=== PATIENT | female | born 1930 | race Caucasian/White ===

== ENCOUNTER 2018-02-28 23:39 | Inpatient (IN) | payer OTHER ==
[~2018-02-28] VITALS: Ht 160 cm; Wt 78.6 kg
[2018-03-01] MEDS ORDERED: TRIAMTERENE-HC1 EAC1 PO (00:13)
[2018-03-01] MEDS ORDERED: VALSARTAN-HCTZ1 EACH PO (00:13)
[2018-03-01] MEDS ORDERED: DONEPEZIL HCL10 M1 PO (00:14)
[2018-03-01] MEDS ORDERED: LORAZEPAM0.5 M1 PO (00:14)
[2018-03-01] MEDS ORDERED: PANTOPRAZOLE SO40 M1 PO (00:14)
[2018-03-01] MEDS ORDERED: ESCITALOPRAM OX10 MG PO (00:14)
[2018-03-01] MEDS ORDERED: ALEVE220 M1 (00:15)
[2018-03-01] MEDS ORDERED: ZYRTEC10 M3 PO (00:16)
[2018-03-01] MEDS ORDERED: COLACE100 M1 (00:16)
[2018-03-01] MEDS ORDERED: ACIDOPHILUS1 EACH PO (00:17)
--- NOTE | 2018-03-01 00:23 | ED DYSPNEA/ASTHMA COMPLAINT ---
History of Present Illness General Chief Complaint: Dyspnea (COPD, CHF, Other) Stated Complaint: BIBA DIFF BREATHING Source: patient, family Exam Limitations: no limitations Vital Signs & Intake/Output Vital Signs & Intake/Output Vital Signs Date Time Temp Pulse Resp B/P B/P Pulse O2 O2 Flow FiO2 Mean Ox Delivery Rate 03/01 0007 98 Nasal 4.0L Cannula 02/28 2344 96.8 86 20 152/98 96 Aerosol 8L Mask ED Intake and Output 03/01 0000 02/28 1200 Intake Total Output Total Balance Patient 140 lb Weight Weight Reported by Patient Measurement Method Allergies Coded Allergies: acetaminophen (From PERCOCET) (Intermediate, VOMITUS 02/28/18) oxycodone (From PERCOCET) (Intermediate, VOMITUS 02/28/18) Uncoded Allergies: Med Allergies PERCOCET Reconcile Medications Cetirizine HCl (Zyrtec) 10 MG TABLET 1 TAB PO DAILY ALLERGIES (Reported) Docusate Sodium (Colace) (Unknown Strength) CAPSULE (Unknown Dose) CONSTIPATION (Reported) Donepezil HCl 10 MG TABLET 1 TAB PO DAILY DEMENTIA (Reported) Escitalopram Oxalate 10 MG TABLET 1 TAB PO DAILY DEPRESSION (Reported) Lactobacillus Acidophilus (Acidophilus) (Unknown Strength) CAPSULE (Unknown Dose) PO DAILY CONSTIPATION (Reported) Lorazepam 0.5 MG TABLET 1 TAB PO DAILY NEEDED ANXIETY (Reported) Naproxen Sodium (Aleve) (Unknown Strength) CAPSULE (Unknown Dose) PAIN CONTROL (Reported) Pantoprazole Sodium 40 MG TABLET.DR 1 TAB PO DAILY ACID REFLUX (Reported) Triamterene/Hydrochlorothiazid (Triamterene-Hctz 37.5-25 MG Tb) 37.5 MG-25 MG TABLET 1 TAB PO DAILY HIGH BLOOD PRESSURE (Reported) Valsartan/Hydrochlorothiazide (Valsartan-Hctz 80-12.5 MG Tab) 80 MG-12.5 MG TABLET 1 TAB PO DAILY HIGH BLOOD PRESSURE (Reported) Triage Note: BIBA FROM HOME WITH C/O INCREASED SOB THAT BEGAN AT 5PM. PT REPORTS SHE USES 02 AT 3L VIA NC. PT WITH HX OF COPD. PER EMS O2 WAS TITRATED TO 6 L WITH SPO2 AT 91%. PT RECIEVED 3 DUO NEBS AND 125 MG SOLUMEDROL IV ENROUTE. PT HAS SLIGHT EDEMA TO BILATERAL LOWER EXTREMITIES. Triage Nurses Notes Reviewed? yes HPI: 87 yo F PMH HTN, HLD, COPD presenting with shortness of breath. Progressive shortnes of breath for the last 2-3 days, worse with movement or ambulation, much worse tonight, patient had increased WOB, EMS called, on arrival patient saturating 60-70% on baseline 3L home O2, improved to low 90s with 3 duonebs and solumedrol. Associated wheezing today, poorly relieved by albuterol MDI (which the patient takes q4 hrs at home). ROS (+) for bilateral LE edema, first noted this evening. Denies associated fevers, chills, chest pain, palpitations, abdominal Sx, urinary Sx, headache, neck pain or focal neurologic Sx. (Clif PALMER,Marco) Past History Travel History Traveled to [place] past 21 day Yes Medical History Any Pertinent Medical History? see below for history Neurological: dementia EENT: allergies Cardiovascular: hypertension Respiratory: COPD, emphysema Gastrointestinal: GERD Hepatic: NONE Renal: NONE Musculoskeletal: NONE Psychiatric: anxiety, depression Endocrine: NONE Blood Disorders: NONE Cancer(s): NONE Surgical History Surgical History: none Psychosocial History What is your primary language [place] Tobacco Use: Never used ETOH Use: denies use Illicit Drug Use: denies illicit drug use Family History Hx Contributory? No (Marco Menezes MD) Review of Systems Review of Systems Constitutional: Reports: see HPI. EENTM: Reports: no symptoms. Respiratory: Reports: see HPI. Cardiovascular: Reports: no symptoms. GI: Reports: no symptoms. Genitourinary: Reports: no symptoms. Musculoskeletal: Reports: no symptoms. Skin: Reports: no symptoms. Neurological/Psychological: Reports: no symptoms. Hematologic/Endocrine: Reports: no symptoms. Immunologic/Allergic: Reports: no symptoms. All Other Systems: Reviewed and Negative (Clif PALMER,Marco) Physical Exam Physical Exam General Appearance: well developed/nourished, no apparent distress, alert Head: atraumatic, tenderness Eyes: Bilateral: PERRL, EOMI. Neck: normal inspection, full range of motion Respiratory: normal breath sounds, wheezing Gastrointestinal: soft, non-tender Extremities: swelling Comments: General: Elderly female laying in a hospital bed, mild distress Pulmonary: Increased WOB with mild tachypnea, Diffuse bilateral inspiratory/ expiratory wheezes Extremities: Symmetric 1+ bilateral LE edema Core Measures ACS in differential dx? No CVA/TIA Diagnosis No Sepsis Present: No Sepsis Focused Exam Completed? No (Clif PALMER,Marco) Progress Differential Diagnosis: asthma, AMI, altitude sickness, bronchitis, costochondritis, CHF, COPD, musculoskeletal pain, pericarditis, pulmonary embolism, pneumonia, pneumothorax, rib fracture, unstable angina Plan of Care: Orders Procedure Date/time Status Heart Healthy Diet 03/01 B Active Pathway - chart 03/01 205 Active Patient Data 03/01 205 Active Code Status 03/01 205 Active OXYGEN SETUP (GEN) 03/01 151 Active Saline Lock 03/01 015 Active Vital Signs 03/01 151 Active Activity/Ambulation 03/01 151 Active Code Status 03/01 015 Complete Patient Data 03/01 147 Active Admit to inpatient 03/01 145 Active TROPONIN LEVEL 03/01 002 Complete D-DIMER 03/01 002 Complete CBC WITHOUT DIFFERENTIAL 03/01 22 Complete B-TYPE NATRIURETIC PEP (BNP) 03/01 002 Complete BASIC METABOLIC PANEL 03/01 002 Complete EKG 03/01 002 Active TRC EVALUATION (GEN) 03/01 UNK Active OXYGEN SETUP (GEN) 03/01 UNK Active House Staff 03/01 UNK Active VTE Mechanical Prophylaxis 03/01 UNK Active Vital Signs 03/01 UNK Active Intake & Output 02/28 4488 Active Current Medications Sig/Hazel Start time Last Medication Dose Stop Time Status Admin Donepezil HCl 10 MG DAILY 03/01 1000 UNVr (Aricept) Enoxaparin Sodium 40 MG DAILY 03/01 1000 UNVr (Lovenox) Escitalopram Oxalate 10 MG DAILY 03/01 1000 UNVr (Lexapro) Lactobacillus 1 CAP DAILY 03/01 1000 UNVr Acidophilus (Probiotic) Omeprazole 20 MG DAILY AC 03/01 0700 UNVr (Prilosec) Docusate Sodium 100 MG DAILY NEEDED PRN 03/01 0215 UNVr (Colace) Lorazepam 0.5 MG DAILY NEEDED 03/01 0215 UNVr (Ativan) 03/08 021 Azithromycin 500 MG ONCE ONE 03/01 0200 UNVr (Zithromax) 03/01 020 Magnesium Sulfate 1 GM ONCE ONE 03/01 0030 AC 03/01 (Mag Sulfate in D5) 03/01 229 004 Dextrose/Water 100 ML (D5W) Laboratory Tests 03/01/18 0035: Anion Gap 11, Estimated GFR > 60, BUN/Creatinine Ratio 28.8 H, Glucose 130 H, Calcium 9.4, Troponin I < 0.01, [id number] Pept 317 H, D-Dimer High Sensitivty < 200, CBC w Diff NO MAN DIFF REQ, RBC 4.62, MCV 88.1, MCH 29.2, MCHC 33.2, RDW 14.9 H, MPV 7.2 L, Gran % 76.1 H, Lymphocytes % 13.2 L, Monocytes % 4.3, Eosinophils % 6.1 H, Basophils % 0.3, Absolute Granulocytes 7.6 H, Absolute Lymphocytes 1.3, Absolute Monocytes 0.4, Absolute Eosinophils 0.6, Absolute Basophils 0 Physician MDM: 87 yo F PMH HTN, HLD, COPD presenting with shortness of breath. Saturating 93% on 6L NC, pulmonary exam as above. DDx: COPD exacerbation, PNA, PTX, PE, CHF/pulmonary edema. ECG sinus rhythm, non-ischemic. Troponin negative. Given magensium and duoneb without improvement in subjective respiratory status, some improvement in pulmonary exam. Bedside Ultrasound with grossly normal EF, no evidence of right heart strain, no B-lines bilaterally. CBC, BMP unremarkable. CXR with ?DEVENDRA spiculated mass/pleural effusion, unclear if new given no priors for comparison, patient/family unsure if new. Azithromycin given for COPD exacerbation. On re-exam patient persistently mildly tachypneic, pulmonary exam unchanged, patient requesting admission ("this is the worst my breathing has ever been"), famiily concern about discharge given that patient lives alone. Admit for monitoring of respiratory status, frequent nebulizers, ongoing IV steroids. Initial ED EKG: normal sinus rhythm (Clif PALMER,Marco) Departure Departure Disposition: STILL A PATIENT Condition: Stable Clinical Impression Primary Impression: COPD exacerbation Referrals: Anjel PALMER,Marcelina Ansari Departure Forms: Customer Survey General Discharge Information Admission Note Spoke With: Suresh Kaur MD Documentation of Exam: Documentation of any treatments & extenuating circumstances including Concerns Regarding Discharge (functional status, medication knowledge or non-compliance, living conditions, etc.) that warrant an admission rather than observation: [ Patient presented in hypoxemic respiratory failure secondary to COPD exacerbation poorly relieved by albuterol at home, found to be hypoxic to the 70s by EMS, mild improvement with ED interventions, patient endorses ongoing shortness of breath and has increased work of breathing on exam, patient family had concerns about discharge given the patient lives alone, patient requires admission for close monitoring respiratory status, frequent albuterol nebulizers , ongoing IV steroids, possible pulmonology consult, possible CT chest for further evaluation of left upper lobe mass discovered on chest x-ray here, if discharge the patient has a high likelihood of progressive respiratory failure, with cardiovascular collapse, and ] (Clif PALMER,Marco) Resident Co-Sign Statement Statement: ED Attending supervision documentation- I saw and evaluated the patient. I have also reviewed all the pertinent lab results and diagnostic results. I agree with the findings and the plan of care as documented in the Resident's documentation. x I have reviewed the ED Record and agree with the Resident's documentation. [] Additions or exceptions (if any) to the Resident's note and plan are summarized below: [] (Seymour PALMER,Bernardo) Critical Care Note Critical Care Note Critical Care Time: non-applicable (Clif PALMER,Marco)
[2018-03-01 00:44] LABS: ABSOLUTE BASOPHIL COUNT 0 /CUMM (0.0-0.2); ABSOLUTE EOSINOPHIL COUNT 0.6 /CUMM (0.0-0.7); ABSOLUTE GRANULOCYTE CT 7.6 /CUMM (1.4-6.5); ABSOLUTE LYMPH COUNT 1.3 /CUMM (1.2-3.4); ABSOLUTE MONOCYTE COUNT 0.4 /CUMM (0.10-0.60); BASOPHIL % 0.3 % (0.0-2.0); EOSINOPHIL % 6.1 % (0-5); GRANULOCYTE % 76.1 % (42.2-75.2); HEMATOCRIT 40.7 % (37-47); MEAN CORPUSCULAR HGB 29.2 PG (27.0-31.0); MEAN CORPUSCULAR HGB CONC 33.2 G/DL (33.0-37.0); MEAN CORPUSCULAR VOLUME 88.1 FL (81.0-99.0); MEAN PLATELET VOLUME 7.2 FL (7.4-10.4); PLATELET COUNT 299 /CUMM (130-400); RBC DISTRIBUTION WIDTH 14.9 % (11.5-14.5); RED BLOOD CELL CT 4.62 /CUMM (4.20-5.40)
--- NOTE | 2018-03-01 01:07 | RADIOLOGY REPORT ---
EXAMINATION:\H\ \N\XR CHEST CLINICAL INFORMATION: COPD. Emphysema. Shortness of breath. COMPARISON: None TECHNIQUE: Frontal portable view of the chest was obtained. 12:39 AM FINDINGS: There is a area of spiculation and irregular density in the left upper lobe. This is a pleural-based density in the peripheral left upper lobe. Density measures about 2 x 3 cm. There is no old films for comparison. Concern for a left upper lobe mass. There is left apical pleural density as well. Could be chronic pleural thickening versus effusion. Recommend CT of chest with contrast for further evaluation. There is emphysematous hyperinflation of lungs. No pulmonary vascular congestion. No pneumothorax. IMPRESSION: There is spiculation and irregular density in the left upper lobe with left apical pleural thickening versus left pleural effusion. There is no old film for comparison. This could be due to left lung mass. CT chest with contrast recommended for further assessment.
--- NOTE | 2018-03-01 01:49 | History & Physical ---
Natalie PALMER,Donnie 03/01/18 0147: General Information and HPI MD Statement: I have seen and personally examined AMANDA MORGAN and documented this H&P. The patient is a 87 year old F who presented with a patient stated chief complaint of [COPD exacerbation]. Source of Information: patient, family Exam Limitations: dementia History of Present Illness: Patient is an 87-year-old female with a PMH significant for HTN, HLD, O2 dependent COPD, lung cancer status post partial lobectomy and radiation (2002), who is brought in by ambulance secondary to worsening shortness of breath. History was obtained from the patient and the patient's daughter who is her POA. She was in her usual state of health yesterday however today the patient began noticing worsening dyspnea and generalized weakness. This was partially relieved by her regularly scheduled nebulizer treatments. However this evening when she began experiencing severe dyspnea and her in-director of operations home health activated the patient's life alert button. On arrival EMS noted patient to be hypoxic to the 60s to 70% on her baseline 3 L O2 nasal cannula. Patient's daughter who sees the patient regularly since she noted lower extremity swelling. Patient denies any associated chest pain, palpitations, nausea, vomiting, fever, chills. Rest of the review of systems as below. Patient has been admitted for COPD however not the past 34 years, has never been intubated secondary to COPD exacerbation. At the beginning of this month patient was put on a prednisone taper by her PCP due to a minor COPD exacerbation. Allergies/Medications Allergies: Coded Allergies: acetaminophen (From PERCOCET) (Intermediate, VOMITUS 02/28/18) oxycodone (From PERCOCET) (Intermediate, VOMITUS 02/28/18) Uncoded Allergies: Med Allergies PERCOCET Home Med list Cetirizine HCl (Zyrtec) 10 MG TABLET 1 TAB PO DAILY ALLERGIES (Reported) Docusate Sodium (Colace) (Unknown Strength) CAPSULE (Unknown Dose) CONSTIPATION (Reported) Donepezil HCl 10 MG TABLET 1 TAB PO DAILY DEMENTIA (Reported) Escitalopram Oxalate 10 MG TABLET 1 TAB PO DAILY DEPRESSION (Reported) Lactobacillus Acidophilus (Acidophilus) (Unknown Strength) CAPSULE (Unknown Dose) PO DAILY CONSTIPATION (Reported) Lorazepam 0.5 MG TABLET 1 TAB PO DAILY NEEDED ANXIETY (Reported) Naproxen Sodium (Aleve) (Unknown Strength) CAPSULE (Unknown Dose) PAIN CONTROL (Reported) Pantoprazole Sodium 40 MG TABLET.DR 1 TAB PO DAILY ACID REFLUX (Reported) Triamterene/Hydrochlorothiazid (Triamterene-Hctz 37.5-25 MG Tb) 37.5 MG-25 MG TABLET 1 TAB PO DAILY HIGH BLOOD PRESSURE (Reported) Valsartan/Hydrochlorothiazide (Valsartan-Hctz 80-12.5 MG Tab) 80 MG-12.5 MG TABLET 1 TAB PO DAILY HIGH BLOOD PRESSURE (Reported) Past History Travel History Traveled to [place] past 21 day Yes Medical History Neurological: dementia EENT: allergies Cardiovascular: hypertension Respiratory: COPD, emphysema Gastrointestinal: GERD Hepatic: NONE Renal: NONE Musculoskeletal: NONE Psychiatric: anxiety, depression Endocrine: NONE Blood Disorders: NONE Cancer(s): NONE Surgical History Surgical History: L partial lobectomy Past Family/Social History Psychosocial History Where do you live? Home Who Do You Live With? self Services at Home: Home Health Aide Primary Language: [place] Smoking Status: Former Smoker (45 pack years, quit 20 yrs ago) ETOH Use: denies use Illicit Drug Use: denies illicit drug use Living Will? yes Power of Motorized Squad Commanding Officer/HCP? yes Name of POA/HCP: Jemma Functional Ability ADLs Independent: dressing, eating, toileting. Needs Assist: bathing. Ambulation: cane IADLs Needs Assist: shopping, housework, finances, food prep, transportation, medication admin. Review of Systems Review of Systems Constitutional: Reports: weakness. Denies: chills, fever. EENTM: Reports: no symptoms. Cardiovascular: Reports: no symptoms. Respiratory: Reports: short of breath, wheezing. Denies: cough. GI: Reports: bloating. Genitourinary: Reports: no symptoms. Musculoskeletal: Reports: no symptoms. Skin: Reports: no symptoms. Neurological/Psychological: Reports: dementia. Hematologic/Endocrine: Reports: no symptoms. Exam & Diagnostic Data Last 24 Hrs of Vital Signs/I&O Vital Signs Date Time Temp Pulse Resp B/P B/P Pulse O2 O2 Flow FiO2 Mean Ox Delivery Rate 03/01 0353 Nasal 4.0L Cannula 03/01 0330 97.9 90 24 124/68 92 Nasal 5.0L Cannula 03/01 022 98.1 84 20 153/70 95 Nasal 4.0L Cannula 03/01 0007 98 Nasal 4.0L Cannula 02/28 2344 96.8 86 20 152/98 96 Aerosol 8L Mask Intake & Output 03/01 0800 03/01 0000 02/28 1600 Intake Total Output Total Balance Patient 140 lb 140 lb Weight Weight Reported by Patient Reported by Patient Measurement Method Physical Exam General Appearance Alert, Oriented X3, Cooperative, mild respiratory distress Skin Temp/Moisture Exam: Warm/Dry HEENT Atraumatic, PERRLA, EOMI, Mucous Membr. moist/pink Cardiovascular Regular Rate, Normal S1, Normal S2, systolic murmur Lungs diminished breathsounds, with diffuse expiratory wheezing Abdomen Normal Bowel Sounds, Soft, mild TTP in the RLQ, several abrasions secondary to scratching Neurological Normal Speech, Sensation Intact, Cranial Nerves 3-12 NL Extremities No Clubbing, No Cyanosis, No Edema Vascular Normal Pulses Last 24 Hrs of Labs/John: Laboratory Tests 03/01/18 0035: Anion Gap 11, Estimated GFR > 60, BUN/Creatinine Ratio 28.8 H, Glucose 130 H, Calcium 9.4, Troponin I < 0.01, Izr-A-Dkwmbovqefx Pept 317 H, D-Dimer High Sensitivty < 200, CBC w Diff NO MAN DIFF REQ, RBC 4.62, MCV 88.1, MCH 29.2, MCHC 33.2, RDW 14.9 H, MPV 7.2 L, Gran % 76.1 H, Lymphocytes % 13.2 L, Monocytes % 4.3, Eosinophils % 6.1 H, Basophils % 0.3, Absolute Granulocytes 7.6 H, Absolute Lymphocytes 1.3, Absolute Monocytes 0.4, Absolute Eosinophils 0.6, Absolute Basophils 0 Diagnostic Data EKG Results EKG NSR with HR 81 CXR Results FINDINGS: There is a area of spiculation and irregular density in the left upper lobe. This is a pleural-based density in the peripheral left upper lobe. Density measures about 2 x 3 cm. There is no old films for comparison. Concern for a left upper lobe mass. There is left apical pleural density as well. Could be chronic pleural thickening versus effusion. Recommend CT of chest with contrast for further evaluation. There is emphysematous hyperinflation of lungs. No pulmonary vascular congestion. No pneumothorax. IMPRESSION: There is spiculation and irregular density in the left upper lobe with left apical pleural thickening versus left pleural effusion. There is no old film for comparison. This could be due to left lung mass. CT chest with contrast recommended for further assessment. Assessment/Plan Assessment: Patient is an 87-year-old female with a PMH significant for HTN, HLD, O2 dependent COPD, lung cancer status post partial lobectomy and radiation (2002), who is brought in by ambulance secondary to worsening shortness of breath. CXR shows spiculation and irregular density of the left upper lobe apical pleural thickening. VS on admission T 96.8, P 86, RR 20, BP 122/80, pulse ox 96% on 4 L O2 nasal cannula Labs on admission: Significant only for mild elevation in BUN/creatinine, mild hyperglycemia, d-dimer within normal limits Problem list #Acute hypoxic respiratory failure secondary to COPD exacerbation #Chronic medical problems Plan -Admit to general medicine -IV Solu-Medrol, 1 time 125 mg, 40 mg every 8 hours starting from tomorrow -TRC/nebs -IV azithromycin, 5 day course -Consult pulm after confirming patient's parts consultant, patient was not made aware of CXR finding that could represent a mass -Consider further imaging given patient's history of lung cancer with spiculated and irregular density seen and no prior imaging comparison - Confirm home medications as the mid list provided by the daughter did not have dosages Diet: Heart healthy diet DVT prophylaxis: Lovenox, Kams CODE STATUS: DNR/DNI As Ranked By This Provider Problem List: 1. COPD exacerbation Core Measures/Misc (08/17) Acute Coronary Syndrome ACS Diagnosis: No Congestive Heart Failure Congestive Heart Failure Diagnosis No Cerebrovascular Accident CVA/TIA Diagnosis: No VTE (View Protocol) VTE Risk Factors Age>40 No Mechanical VTE Prophylaxis d/t N/A MechProphylax Ordered No VTE Pharm Prophylaxis d/t NA PharmProphylax ordered Sepsis (View protocol) Sepsis Present: No Jania Handy 03/01/18 0323: Resident Review Statement Resident Statement: examined this patient, discussed with sports internship, agreed with sports internship, reviewed images Other Findings: 87-year-old woman, former smoker past medical history significant for lung cancer status post left partial lobectomy and radiation, COPD on 3 L home oxygen, dementia, anxiety, hypertension, GERD brought in by ambulance for shortness of breath. Patient was at baseline prior to the night before when after she started experiencing shortness of breath and difficulty speaking complete sentences. About a month ago she saw her PCP for shortness of breath and was given a steroid taper. Endorses cold-like symptoms since the past 1 week and decreased by mouth intake. Denies fever, chills, chest pain, bowel and bladder symptoms. She has 24-hour home care and lives alone. Vitals temperature 96.8, heart rate 86, respiratory 20, blood pressure 150/98, saturating 90% on 4 L nasal cannula. Physical exam significant for bilaterally decreased breath sounds and extensive wheezing throughout all lung areas, S1-S2, short soft systolic murmur heard in all areas Abdomen distended, bowel sounds soft nontender, skin excoriation on abdomen and upper back [patient scratches herself] EKG normal sinus, QTC 451 CBC and BP unremarkable, proBNP 317, troponin negative Chest x-ray significant for spiculated irregular density in the left upper lobe and apical pleural thickening Assessment: Acute on chronic respiratory failure secondary to COPD exacerbation secondary to viral bronchitis Problem list Acute on chronic respiratory failure Lung cancer Hypertension Dementia Depression/Anxiety Plan Admit to general medicine floor, vitals per protocol TRC/nebs, continue supplemental oxygen Continue with IV azithromycin Will give one-time dose of 125 IV Solu-Medrol, and continue with IV 40 every 8 Pulmonary consult in a.m. unsure who her parts consultant is Please reconcile meds with her daughter who will come in the morning For now we'll continue with home meds of Lexapro, Aricept, omeprazole and Ativan Heart healthy diet DVT prophylaxis subcutaneous Lovenox Patient is DNR/DNI Suresh Kaur MD 03/01/18 0406: Attending MD Review Statement Attending Statement Attending MD Statement: examined this patient, discuss w/resident/PA/HORSE TREKKING GUIDE, agreed w/resident/PA/HORSE TREKKING GUIDE, reviewed EMR data (avail), discussed with nursing Attending Assessment/Plan: Ms. Morgan is a 87 y/o female with COPD 3 L of home oxygen, dementia hypertension lung cancer status post left sided lobectomy and radiation is brought in by ambulance with complaints of shortness of breath. Apparently patient does not follow with parts consultant on a regular basis, which has to be confirmed in the morning. Patient had COPD exacerbation and was treated as an outpatient by her primary care doctor. On examination blood pressure is 150/98 heart rate of 86 respiratory rate of 20 saturating 92% on 4 L nasal cannula. Has extensive bilateral wheezing and decreased air entry. Alert and in no distress, 2/6 systolic murmur heard mainly in the aortic area, abdomen minimally distended bowel sounds present, skin excoriation present Assessment 1. COPD exacerbation - 3L of oxygen by nasal cannula - home nebulizers have to be verified in AM 2. H/O lung cancer - s/p left partial lobectomy 3. Dementia 4. Hypertension Plan Continue with steroids - solumedrom 40 mg Q 8 hrly , IV Zithromax, TRC nebulizations Maintain on supplemental oxygen to target saturation between 90 & 94% Obtain pulmonology consultation after discussing to make sure who her primary parts consultant is, if she has one Continue with Aricept and other home medications
[2018-03-01 03:30] VITALS: BP 124/68
--- NOTE | 2018-03-01 12:02 | PN- Att Addend ---
Attending Addendum Attending Brief Note 87-year-old [place] female with a history significant for COPD on 3 L of home oxygen, mild cognitive impairment, hypertension, CVA lung status post left sided lobectomy and radiation therapy has been admitted for shortness of breath and currently being treated for exacerbation of asthma. Patient was seen and examined on the bedside, currently on 4 L of home oxygen, no fever and no white count. Chest x-ray negative for any consolidation but showing left apical pleural thickening versus left pleural effusion which could be likely due to her left lung mass. CT chest with contrast has been recommended which I will leave it to the morning team to assess but now the patient is currently doing fine. We will continue on IV Solu-Medrol IV every 8 and will taper it down from tomorrow, Z-Natanael, TRKenney nebs, supplemental oxygen to a target saturation of more than 92%, will continue the rest of her home medications DVT prophylaxis.
[2018-03-01 13:51] VITALS: BP 132/66
[2018-03-01 22:03] VITALS: BP 120/52
[2018-03-02 06:43] VITALS: BP 122/64
--- NOTE | 2018-03-02 07:14 | PN- Housestaff ---
Laury Travis 03/02/18 0714: Subjective Follow-up For: Acute hypoxic respiratory failure secondary to COPD exacerbation Spiculation and irregular density of the left upper lobe, apical pleural thickening Subjective: Patient reports worsening SOB at rest only temporarily relieved with neb treatments. Review of Systems Constitutional: Reports: see HPI. Objective Last 24 Hrs of Vital Signs/I&O Vital Signs Date Time Temp Pulse Resp B/P B/P Pulse O2 O2 Flow FiO2 Mean Ox Delivery Rate 03/02 0643 97.6 84 22 122/64 96 Nasal 4.0L Cannula 03/02 0316 98 Nasal 4.0L Cannula 03/02 0000 Nasal 4.0L Cannula 03/01 2203 97.9 85 24 120/52 95 Nasal 4.0L Cannula 03/01 1701 95 Nasal 4.0L Cannula 03/01 1600 94 Nasal 4.0L Cannula 03/01 1351 97.2 97 20 132/66 92 03/01 1234 Nasal 4.0L Cannula Intake & Output 03/02 1600 03/02 0800 03/02 0000 Intake Total 225 120 Output Total 600 502 Balance -375 -382 Intake, IV 5 Intake, Oral 220 120 Number 1 Bowel Movements Output, Stool 2 Output, Urine 600 500 Patient 165 lb Weight Physical Exam General Appearance: Mild Distress, on 4LNC Cardiovascular: Regular Rate, Normal S1, Normal S2, No Murmurs Lungs: Mild BL wheezing Abdomen: Normal Bowel Sounds, Soft, No Tenderness Current Medications: Current Medications Sig/Hazel Start time Last Medication Dose Route Stop Time Status Admin Albuterol Sulfate 3 ML BID 03/01 2200 AC 03/02 INH 0846 Azithromycin 500 MG DAILY 03/02 1000 AC Dextrose/Water 250 ML IV Docusate Sodium 100 MG DAILY NEEDED PRN 03/01 021 AC PO Donepezil HCl 10 MG DAILY 03/01 1000 AC 03/01 PO 0920 Enoxaparin Sodium 40 MG DAILY 03/01 1000 AC 03/01 SC 0928 Escitalopram Oxalate 10 MG DAILY 03/01 1000 AC 03/01 PO 0920 Lactobacillus 1 CAP DAILY 03/01 1000 AC 03/01 Acidophilus PO 0928 Lorazepam 0.5 MG DAILY NEEDED 03/01 0215 AC 03/02 PO 03/08 021 0549 Melatonin 5 MG ONCE ONE 03/01 2200 DC 03/01 PO 04/01 2201 2201 Methylprednisolone 40 MG Q8 03/02 0600 AC 03/02 IV 0549 Omeprazole 20 MG DAILY AC 03/01 0700 AC 03/02 PO 0549 Last 24 Hrs of Lab/John Results Last 24 Hrs of Labs/Mics: Microbiology 03/02 0900 LOWER RESP: Respiratory Culture - ORD 03/02 0900 LOWER RESP: Gram Stain - ORD 03/02 0900 NASOPHARYN: Influenza Virus A & B Rapid Smear - ORD Assessment/Plan Assessment: Ms. Baum is an 87-year-old female with a PMH significant for HTN, HLD, O2 dependent COPD, lung cancer status post partial lobectomy and radiation (2002), who is brought in by ambulance secondary to worsening shortness of breath. CXR shows spiculation and irregular density of the left upper lobe apical pleural thickening. Problem list Acute hypoxic respiratory failure secondary to COPD exacerbation Spiculation and irregular density of the left upper lobe, apical pleural thickening Plan TRC/nebs PRN Supplemental oxygen, target saturation >92% Continue IV azithromycin Continue IV Methylprednisolone Influenza swab pending Obtain noncontrast CT chest Pulm consult with Dr. Ramirez Will contact patient hotel maintenance technician Dr. Boyer/Grant ([place]) to obtain records Daughter for any issues: Diet: Heart healthy diet DVT prophylaxis: Lovenox, Alps CODE STATUS: DNR/DNI Problem List: 1. COPD exacerbation Pain Ratin Pain Location: NA Pain Goal: Remain pain free Pain Plan: NA Tomorrow's Labs & Rationales: none Paul Dumont MD 03/02/18 1114: Attending MD Review Statement Attending Statement Attending MD Statement: examined this patient, discuss w/resident/PA/ASSISTANT GENERAL MANAGER, agreed w/resident/PA/ASSISTANT GENERAL MANAGER, reviewed EMR data (avail), discussed with nursing, discussed with case mgmt, amended to note Attending Assessment/Plan: Mobilize patient as tolerated. Patient is an extremely pleasant 87-year-old female who did not appear to be in any distress whatsoever during the course of my interaction with her. She has a history of previously treated lung cancer on oxygen dependent COPD. Presented with acute shortness of breath and hypoxemia despite oxygen supplementation. Following Management for COPD exacerbation with bronchodilators and intravenous steroids she reports feeling better today. She does admit that she has not yet back to her baseline. She does admit to dyspnea on exertion. She is currently saturating 96-90% on 4 L of oxygen. Saturations decreased to 92% on 3 L of oxygen. She is no making use of any accessory muscles. On examination she has diminished breath sounds particularly in the left lung field. She has no added sounds. She has no jugular venous distention or peripheral edema to suggest volume overload. Recommendations: -Continue management for COPD exacerbation with bronchodilators and current dose of intravenous steroids. -Obtain sputum cultures if possible. Perform influenza screen. Hold off antibiotic therapy for now. -I agree recommendations by the pulmonology service for noncontrast CT scan of the chest for further evaluation due to a history of lung cancer. Recommend obtaining previous records from her hotel maintenance technician for comparison. -Mobilize patient as tolerated. - No need to repeat serum chemistry or CBC in a.m. unless there is a change in her clinical condition.
--- NOTE | 2018-03-02 08:40 | Cons- Pulmonary ---
General Information and HPI Consulting Request Date of Consult: 03/02/18 Requested By: Hiren Reason for Consult: Exacerbation of COPD History of Present Illness: Patient is an 87-year-old with chronic hypoxic respiratory failure secondary COPD history of distant lung cancer status post surgical surgery and radiation admitted with increasing shortness of breath. Chest x-ray shows a left upper lobe lesion of uncertain duration or significance as there are no old films for comparison. She has remained significantly bronchospastic shortness of breath she denies chest pain Allergies/Medications Allergies: Coded Allergies: acetaminophen (From PERCOCET) (Intermediate, VOMITUS 02/28/18) oxycodone (From PERCOCET) (Intermediate, VOMITUS 02/28/18) Uncoded Allergies: Med Allergies PERCOCET Home Med List: Cetirizine HCl (Zyrtec) 10 MG TABLET 1 TAB PO DAILY ALLERGIES (Reported) Docusate Sodium (Colace) (Unknown Strength) CAPSULE (Unknown Dose) CONSTIPATION (Reported) Donepezil HCl 10 MG TABLET 1 TAB PO DAILY DEMENTIA (Reported) Escitalopram Oxalate 10 MG TABLET 1 TAB PO DAILY DEPRESSION (Reported) Lactobacillus Acidophilus (Acidophilus) (Unknown Strength) CAPSULE (Unknown Dose) PO DAILY CONSTIPATION (Reported) Lorazepam 0.5 MG TABLET 1 TAB PO DAILY NEEDED ANXIETY (Reported) Naproxen Sodium (Aleve) (Unknown Strength) CAPSULE (Unknown Dose) PAIN CONTROL (Reported) Pantoprazole Sodium 40 MG TABLET.DR 1 TAB PO DAILY ACID REFLUX (Reported) Triamterene/Hydrochlorothiazid (Triamterene-Hctz 37.5-25 MG Tb) 37.5 MG-25 MG TABLET 1 TAB PO DAILY HIGH BLOOD PRESSURE (Reported) Valsartan/Hydrochlorothiazide (Valsartan-Hctz 80-12.5 MG Tab) 80 MG-12.5 MG TABLET 1 TAB PO DAILY HIGH BLOOD PRESSURE (Reported) Review of Systems Review of Systems Constitutional: Denies: chills, fever. Cardiovascular: Denies: chest pain. Respiratory: Reports: cough, short of breath, wheezing. GI: Denies: abdominal pain, diarrhea, melena. Past History Travel History Traveled to [place] past 21 day Yes Medical History Neurological: dementia EENT: allergies Cardiovascular: hypertension Respiratory: COPD, emphysema Gastrointestinal: GERD Hepatic: NONE Renal: NONE Musculoskeletal: NONE Psychiatric: anxiety, depression Endocrine: NONE Blood Disorders: NONE Cancer(s): NONE Surgical History Surgical History: L partial lobectomy Psychosocial History Where Do You Live? Home Who Do You Live With? self Services at Home: Home Health Aide Primary Language: French Smoking Status: Former Smoker (45 pack years, quit 20 yrs ago) ETOH Use: denies use Illicit Drug Use: denies illicit drug use Living Will? yes Power of Collar Turner/HCP? yes Name of POA/HCP: Jemma Functional Ability ADLs Independent: dressing, eating, toileting. Needs Assist: bathing. Ambulation: cane IADLs Needs Assist: shopping, housework, finances, food prep, transportation, medication admin. Exam & Diagnostic Data Last 24 Hrs of Vital Signs/I&O Vital Signs Date Time Temp Pulse Resp B/P B/P Pulse O2 O2 Flow FiO2 Mean Ox Delivery Rate 03/02 0643 97.6 84 22 122/64 96 Nasal 4.0L Cannula 03/02 0316 98 Nasal 4.0L Cannula 03/02 0000 Nasal 4.0L Cannula 03/01 2203 97.9 85 24 120/52 95 Nasal 4.0L Cannula 03/01 1701 95 Nasal 4.0L Cannula 03/01 1600 94 Nasal 4.0L Cannula 03/01 1351 97.2 97 20 132/66 92 04 1234 Nasal 4.0L Cannula Intake & Output 03/02 1600 03/02 0800 03/02 0000 Intake Total 225 120 Output Total 600 502 Balance -375 -382 Intake, IV 5 Intake, Oral 220 120 Number 1 Bowel Movements Output, Stool 2 Output, Urine 600 500 Patient 165 lb Weight Oxygen saturation 4 L 96-98% HNT exam shows no adenopathy exam for chest shows scattered bilateral wheezing cardiac exam shows a regular S1 and S2 without murmur abdomen is soft nontender there is no significant edema Last 48 Hrs of Labs/John: Laboratory Tests 03/01/18 0035: Anion Gap 11, Estimated GFR > 60, BUN/Creatinine Ratio 28.8 H, Glucose 130 H, Calcium 9.4, Troponin I < 0.01, [id number] Pept 317 H, D-Dimer High Sensitivty < 200, CBC w Diff NO MAN DIFF REQ, RBC 4.62, MCV 88.1, MCH 29.2, MCHC 33.2, RDW 14.9 H, MPV 7.2 L, Gran % 76.1 H, Lymphocytes % 13.2 L, Monocytes % 4.3, Eosinophils % 6.1 H, Basophils % 0.3, Absolute Granulocytes 7.6 H, Absolute Lymphocytes 1.3, Absolute Monocytes 0.4, Absolute Eosinophils 0.6, Absolute Basophils 0 Assessment/Plan Impression/Plan: 87-year-old who has chronic hypoxic history failure admitted with exacerbation of COPD and found to have an abnormal chest x-ray with a left upper lobe spiculated lesion. Recommendations: Assess for influenza. Continue IV steroids Zithromax and nebulized bronchodilators. Assess sputum C&S. DVT prophylaxis. Obtain old records regarding location and treatment for prior lung cancer. Obtain noncontrast CT scan of the chest Consult Acknowledgment - Thank you for your consult request.
--- NOTE | 2018-03-02 12:15 | CT SCAN REPORT ---
EXAMINATION: CT CHEST WITHOUT CONTRAST CLINICAL INFORMATION: Shortness of breath and increased oxygen requirement. COMPARISON: Chest radiograph 03/01/2018. TECHNIQUE: Multidetector volumetric CT imaging of the chest was done. Axial MIP volume rendering provided. Sagittal and coronal reformatted images were obtained. DLP: 403 mGy-cm FINDINGS: LUNGS/PLEURA: There is left sided pleural thickening in the upper lobe with associated sclerotic and presumably postoperative changes in the adjacent ribs. There is some surgical material/sutures within this region. There is associated volume loss within the left lung with some leftward shift of the mediastinum. There are patchy areas of groundglass opacity in the lingula and some tree-in-bud opacities at the right lung base and in the peripheral aspect of the right middle lobe. Postoperative changes are also noted in the right suprahilar region. MEDIASTINUM: Mild leftward shift of the mediastinum related to volume loss from the left hemithorax. No mediastinal or hilar adenopathy. Atheromatous changes in the aorta, great vessels, and coronary arteries. No pericardial effusion or cardiomegaly. AXILLA: No lymphadenopathy. Surgical clips are noted posterior to the right axilla within the posterior aspect of the chest wall. UPPER ABDOMEN: Unremarkable. OSSEOUS STRUCTURES: No acute fracture or destructive lesion. Postoperative changes in the left third, fourth, and fifth ribs is noted. There is synostosis of the right fourth and fifth posterior ribs. IMPRESSION: - Pleural thickening in the left upper lobe with associated calcification/surgical material. Correlation with surgical history is recommended. Correlation with prior chest CTs is also recommended to evaluate the stability of this pleural thickening. If no prior studies are available a short interval follow-up is recommended. - Mild volume loss in the left hemithorax with some leftward deviation of the mediastinum. No adenopathy. - Groundglass opacities in the lingula and tree-in-bud opacities in the right lung base and right middle lobe compatible with infectious/inflammatory process.
[2018-03-02 14:28] VITALS: BP 140/80
[2018-03-02 22:31] VITALS: BP 122/80
[2018-03-03 06:25] VITALS: BP 154/70
--- NOTE | 2018-03-03 07:17 | PN- Housestaff ---
Laury Travis 03/03/18 0717: Subjective Follow-up For: Acute hypoxic respiratory failure secondary to COPD exacerbation Spiculation and irregular density of the left upper lobe, apical pleural thickening Subjective: Patient reports she feels much better this morning and has not been SOB. She is crying thid morning because she misses her dog that past away a month ago and feels she's lonely at home because her also past away. Denies depression , CP, nausea, vomiting Review of Systems Constitutional: Reports: see HPI. Objective Last 24 Hrs of Vital Signs/I&O Vital Signs Date Time Temp Pulse Resp B/P B/P Pulse O2 O2 Flow FiO2 Mean Ox Delivery Rate 03/03 0857 95 Nasal 3.0L Cannula 03/03 0625 98.2 87 20 154/70 95 Nasal 4.0L Cannula 03/03 0240 95 Nasal 4.0L Cannula 03/03 0000 Nasal 4.0L Cannula 03/02 2231 98.0 95 22 122/80 97 Nasal Cannula 03/02 1700 96 Nasal 4.0L Cannula 03/02 1600 96 Nasal 4.0L Cannula 03/02 1428 98.0 88 18 140/80 95 Nasal 4.0L Cannula Intake & Output 03/03 1600 03/03 0800 03/03 0000 Intake Total 300 720 Output Total 350 300 Balance -50 420 Intake, IV 20 Intake, Oral 300 700 Number 0 0 Bowel Movements Output, Urine 350 300 Patient 173 lb Weight Weight Bed scale Measurement Method Physical Exam General Appearance: Alert, Oriented X3, Cooperative Cardiovascular: Regular Rate, Normal S1, Normal S2 Lungs: Mild wheezing on 4LNC Abdomen: Normal Bowel Sounds, Soft, No Tenderness Current Medications: Current Medications Sig/Hazel Start time Last Medication Dose Route Stop Time Status Admin Albuterol Sulfate 3 ML EVERY 4 HRS/AWAKE 03/03 0800 AC 03/03 INH 0852 Albuterol Sulfate 3 ML BID 03/01 2200 DC 03/02 INH 2125 Azithromycin 500 MG DAILY 03/02 1000 AC 03/03 Dextrose/Water 250 ML IV 1004 Docusate Sodium 100 MG DAILY NEEDED PRN 03/01 0215 AC PO Donepezil HCl 10 MG DAILY 03/01 1000 AC 03/03 PO 1005 Enoxaparin Sodium 40 MG DAILY 03/01 1000 AC 03/03 SC 1004 Escitalopram Oxalate 10 MG DAILY 03/01 1000 AC 03/03 PO 1005 Lactobacillus 1 CAP DAILY 03/01 1000 AC 03/03 Acidophilus PO 1005 Lorazepam 0.5 MG DAILY NEEDED 03/01 0215 AC 03/02 PO 03/08 0214 2151 Methylprednisolone 40 MG Q12 03/03 1000 AC 03/03 IV 1010 Methylprednisolone 40 MG Q8 03/02 0600 DC 03/03 IV 0516 Omeprazole 20 MG DAILY AC 03/01 0700 AC 03/03 PO 0516 Last 24 Hrs of Lab/John Results Last 24 Hrs of Labs/Mics: Microbiology 03/02 1800 NASOPHARYN: Influenza Virus A & B Rapid Smear - COMP Assessment/Plan Assessment: Ms. Baum is an 87-year-old female with a PMH significant for HTN, HLD, O2 dependent COPD, lung cancer status post partial lobectomy and radiation (2002), who is brought in by ambulance secondary to worsening shortness of breath. CXR shows spiculation and irregular density of the left upper lobe apical pleural thickening, currently awaiting records from her senior technical writer Dr. Boyer. Her SOB has significantly improved over the past few days. Problem list Acute hypoxic respiratory failure secondary to COPD exacerbation Spiculation and irregular density of the left upper lobe, apical pleural thickening Plan TRC/nebs PRN Supplemental oxygen, target saturation >92% Continue IV azithromycin Continue IV Methylprednisolone Influenza test negative Noncontrast CT chest showed Groundglass opacities in the lingula and tree-in-bud opacities in the right lung base and right middle lobe compatible with infectious/inflammatory process. Pulm recommendations appreciated Await records from senior technical writer Dr. Boyer/Grant ([place]) - faxed request Daughter for any issues: Diet: Heart healthy diet DVT prophylaxis: Lovenox, Alps CODE STATUS: DNR/DNI Problem List: 1. COPD exacerbation 2. Abnormal CT scan, lung Pain Ratin Pain Location: NA Pain Goal: Remain pain free Pain Plan: NA Tomorrow's Labs & Rationales: none Paul Dumont MD 03/03/18 1030: Attending Review Statement Attending Statement Attending MD Statement: examined this patient, discuss w/resident/PA/NIGHT COURT MAGISTRATE, agreed w/resident/PA/NIGHT COURT MAGISTRATE, reviewed EMR data (avail), discussed with nursing, discussed with case mgmt, amended to note Attending Assessment/Plan: Patient seen and examined. She was very tearful this morning 1 in the loss of her dog who about a month ago. We did counselor at law at the bedside and she did perk up. She reports feeling better from a respiratory standpoint. She reports significantly less shortness of breath compared to presentation. She is maintaining saturation on her home oxygen concentration. On examination she continues to have reduced air entry in the left with no added breath sounds bilaterally. Chest CT done yesterday reviewed. Postoperative changes noted. Pulmonology follow-up appreciated. We will taper her Solu-Medrol down to every 12 hours today and begin patient on oral prednisone tomorrow. Patient reports that she resides alone at home. She reports that her daughter is not around 24 hours of the day. He lives around the unit today. Tomorrow after weaning down to oral steroid therapy will reassess to determine if she is safe enough to be discharged home or if she will benefit from recuperation in a [facility] facility. The case management service will be following up with her daughter. We will repeat blood work only if there is a change in her clinical condition.
--- NOTE | 2018-03-03 08:39 | PN- Pulmonary ---
Subjective HPI/Critical Care Issues: Patient slept well and shortness of breath is improved. CT findings are likely postoperative Objective Current Medications: Current Medications Sig/Hazel Start time Last Medication Dose Route Stop Time Status Admin Albuterol Sulfate 3 ML EVERY 4 HRS/AWAKE 03/03 0800 AC 03/03 INH 0238 Albuterol Sulfate 3 ML BID 03/01 2200 DC 03/02 INH 2125 Azithromycin 500 MG DAILY 03/02 1000 AC 03/02 Dextrose/Water 250 ML IV 1140 Docusate Sodium 100 MG DAILY NEEDED PRN 03/01 0215 AC PO Donepezil HCl 10 MG DAILY 03/01 1000 AC 03/02 PO 1134 Enoxaparin Sodium 40 MG DAILY 03/01 1000 AC 03/02 SC 1136 Escitalopram Oxalate 10 MG DAILY 03/01 1000 AC 03/02 PO 1134 Lactobacillus 1 CAP DAILY 03/01 1000 AC 03/02 Acidophilus PO 1135 Lorazepam 0.5 MG DAILY NEEDED 03/01 0215 AC 03/02 PO 03/08 0214 2151 Methylprednisolone 40 MG Q12 03/03 1000 UNVr IV Methylprednisolone 40 MG Q8 03/02 0600 DC 03/03 IV 0516 Omeprazole 20 MG DAILY AC 03/01 0700 AC 03/03 PO 0516 Patient Medication 1 ED ONE ONE 03/02 1045 DC 03/02 Teaching ED 03/02 1046 1140 Vital Signs & I&O Last 24 Hrs of Vitals and I&O: Vital Signs Date Time Temp Pulse Resp B/P B/P Pulse O2 O2 Flow FiO2 Mean Ox Delivery Rate 03/03 0625 98.2 87 20 154/70 95 Nasal 4.0L Cannula 03/03 0240 95 Nasal 4.0L Cannula 03/03 0000 Nasal 4.0L Cannula 03/02 2231 98.0 95 22 122/80 97 Nasal Cannula 03/02 1700 96 Nasal 4.0L Cannula 03/02 1600 96 Nasal 4.0L Cannula 03/02 1428 98.0 88 18 140/80 95 Nasal 4.0L Cannula 03/02 0845 92 Nasal 3.0L Cannula Intake & Output 03/03 1600 03/03 0800 03/03 0000 Intake Total 300 720 Output Total 350 300 Balance -50 420 Intake, IV 20 Intake, Oral 300 700 Number 0 0 Bowel Movements Output, Urine 350 300 Patient 173 lb Weight Weight Bed scale Measurement Method Oxygen saturation 4 L 95% exam for chest shows resolved bronchospasm the breath sounds are somewhat diminished cardiac exam shows regular S1 and S2 without murmurs Impression/Plan Impression/Plan Impression/Plan: 87-year-old woman with chronic hypoxic respiratory failure status post lung cancer surgery admitted with exacerbation of COPD. Chest x-ray findings are likely related to prior surgery. Shortness of breath is improved Recommendations: Continue current medical regimen will to switch to oral prednisone tomorrow Taper FiO2 his saturations allow.
[2018-03-03 13:55] VITALS: BP 122/80
[2018-03-03 22:46] VITALS: BP 140/70
[2018-03-04 06:20] VITALS: BP 148/76
--- NOTE | 2018-03-04 07:23 | PN- Housestaff ---
See Addendum Subjective Follow-up For: Acute hypoxic respiratory failure secondary to COPD exacerbation Spiculation and irregular density of the left upper lobe, apical pleural thickening Subjective: Patient reports SOB has improved but has a back pain that began this morning. Medical team spoke with daughter today about plan for discharge and plan for HHS and private aide. Review of Systems Constitutional: Reports: see HPI. Objective Last 24 Hrs of Vital Signs/I&O Vital Signs Date Time Temp Pulse Resp B/P B/P Pulse O2 O2 Flow FiO2 Mean Ox Delivery Rate 03/04 1015 94 Nasal 3.0L Cannula 03/04 0800 Nasal 3.0L Cannula 03/04 0620 97.8 70 22 148/76 94 Nasal Cannula 03/04 0039 93 Nasal 3.0L Cannula 03/04 0000 Nasal 3.0L Cannula 03/03 2246 98.1 78 22 140/70 92 Nasal Cannula 03/03 1640 95 Nasal 3.0L Cannula 03/03 1600 Nasal 4.0L Cannula 03/03 1355 98.2 88 20 122/80 93 Nasal 3.0L Cannula Intake & Output 03/04 1600 03/04 0800 03/04 0000 Intake Total 100 290 Output Total 100 250 Balance -100 -150 290 Intake, IV 10 Intake, Oral 100 280 Output, Urine 100 250 Patient 173 lb Weight Weight Bed scale Measurement Method Physical Exam General Appearance: Alert, Oriented X3, Cooperative, No Acute Distress Cardiovascular: Regular Rate, Normal S1, Normal S2 Lungs: Mild L side wheezing. Decreased breath sounds on R Abdomen: Normal Bowel Sounds, Soft, No Tenderness Current Medications: Current Medications Sig/Hazel Start time Last Medication Dose Route Stop Time Status Admin Acetaminophen 650 MG Q4P PRN 03/04 1015 AC 03/04 PO 1006 Albuterol Sulfate 3 ML EVERY 4 HRS/AWAKE 03/03 0800 AC 03/04 INH 1013 Azithromycin 500 MG DAILY 03/02 1000 AC 03/04 Dextrose/Water 250 ML IV 1006 Docusate Sodium 100 MG DAILY NEEDED PRN 03/01 0215 AC PO Donepezil HCl 10 MG DAILY 03/01 1000 AC 03/04 PO 1006 Enoxaparin Sodium 40 MG DAILY 03/01 1000 AC 03/04 SC 1006 Escitalopram Oxalate 10 MG DAILY 03/01 1000 AC 03/04 PO 1006 Lactobacillus 1 CAP DAILY 03/01 1000 AC 03/04 Acidophilus PO 1006 Lorazepam 0.5 MG DAILY NEEDED 03/01 0215 AC 03/03 PO 03/08 0214 205 Methylprednisolone 40 MG Q12 03/03 1000 DC 03/03 IV 2051 Omeprazole 20 MG DAILY AC 03/01 0700 AC 03/04 PO 0609 Patient Medication 1 ED ONE ONE 03/04 1045 DC 03/04 Teaching ED 03/04 1046 1116 Patient Medication 1 ED ONE ONE 03/03 1545 DC Teaching ED 03/03 1546 Prednisone 40 MG DAILY 03/04 1000 AC 03/04 PO 03/05 1001 1116 Assessment/Plan Assessment: Ms. Baum is an 87-year-old female with a PMH significant for HTN, HLD, O2 dependent COPD, lung cancer status post partial lobectomy and radiation (2002), who is brought in by ambulance secondary to worsening shortness of breath. CXR shows spiculation and irregular density of the left upper lobe apical pleural thickening, currently awaiting records from her vp ad sales west Dr. Boyer. Her SOB has significantly improved over the past few days. Problem list Acute hypoxic respiratory failure secondary to COPD exacerbation Spiculation and irregular density of the left upper lobe, apical pleural thickening Plan TRC/nebs PRN Supplemental oxygen, target saturation >92% Continue IV azithromycin Change IV Methylprednisolone to PO Influenza test negative Noncontrast CT chest showed Groundglass opacities in the lingula and tree-in-bud opacities in the right lung base and right middle lobe compatible with infectious/inflammatory process. Pulm recommendations appreciated Await records from [employer] [place] Dr. Boyer/Grant ([place]) - faxed request Daughter for any issues: Diet: Heart healthy diet DVT prophylaxis: Lovenox, Alps CODE STATUS: DNR/DNI Discharge today to home with [facility] and private aide Problem List: 1. COPD exacerbation 2. Abnormal CT scan, lung Pain Ratin Pain Location: NA Pain Goal: Remain pain free Pain Plan: NA Tomorrow's Labs & Rationales: none
--- NOTE | 2018-03-04 08:08 | Patient Discharge Instructions ---
Discharge Instructions General Discharge Information You were seen/treated for: Acute hypoxic respiratory failure secondary to COPD exacerbation Spiculation and irregular density of the left upper lobe, apical pleural thickening You had these procedures: none Special Instructions: Follow up with Dr. Boyer upon discharge Follow up with your PCP within 1-2 weeks of discharge Follow up with the COPD clinic at [place] as needed Diet Recommended Diet: Heart Healthy Activity Other activity limits: As tolerated Acute Coronary Syndrome Inclusion Criteria At DC or during hospital stay patient has or had the following: ACS DIAGNOSIS No Discharge Core Measures Meds if any: Prescribed or Continued at Discharge Meds if any: NOT Prescribed or Continued at Discharge Congestive Heart Failure Inclusion Criteria At DC or during hospital stay patient has or had the following: CHF DIAGNOSIS No Discharge Core Measures Meds if any: Prescribed or Continued at Discharge Meds if any: NOT Prescribed or Continued at Discharge Cerebrovascular accident Inclusion Criteria At DC or during hospital stay patient has or had the following: CVA/TIA Diagnosis No Discharge Core Measures Meds if any: Prescribed or Continued at Discharge Meds if any: NOT Prescribed or Continued at Discharge Venous thromboembolism Inclusion Criteria VTE Diagnosis No VTE Type NONE VTE Confirmed by (Test) NONE Discharge Core Measures - Per Current guidelines, there needs to be overlap - treatment for the first 5 days of Warfarin therapy. - If discharged on Warfarin prior to 5 days of - overlap therapy, the patient will need to be - assessed for post discharge needs including - *Post discharge parental anticoagulation - *Warfarin and/or parental anticoagulation education - *Follow up date to check INR post discharge At least 5 days overlap therapy as Inpatient No Meds if any: Prescribed or Continued at Discharge Note: Overlap Therapy is Warfarin and Anticoagulant Meds if any: NOT Prescribed or Continued at Discharge
[2018-03-04] MEDS ORDERED: AZITHROMYCIN500 M3 PO ×2 (08:41→16:54)
[2018-03-04] MEDS ORDERED: PREDNISONE10 M2 PO ×2 (08:41→16:54)
--- NOTE | 2018-03-04 08:44 | PN- Pulmonary ---
Subjective HPI/Critical Care Issues: Patient feels somewhat better but continues to have shortness of breath which is likely baseline Objective Current Medications: Current Medications Sig/Hazel Start time Last Medication Dose Route Stop Time Status Admin Albuterol Sulfate 3 ML EVERY 4 HRS/AWAKE 03/03 0800 AC 03/04 INH 0620 Azithromycin 500 MG DAILY 03/02 1000 AC 03/03 Dextrose/Water 250 ML IV 1004 Docusate Sodium 100 MG DAILY NEEDED PRN 03/01 0215 AC PO Donepezil HCl 10 MG DAILY 03/01 1000 AC 03/03 PO 1005 Enoxaparin Sodium 40 MG DAILY 03/01 1000 AC 03/03 SC 1004 Escitalopram Oxalate 10 MG DAILY 03/01 1000 AC 03/03 PO 1005 Lactobacillus 1 CAP DAILY 03/01 1000 AC 03/03 Acidophilus PO 1005 Lorazepam 0.5 MG DAILY NEEDED 03/01 0215 AC 03/03 PO 03/08 0214 2052 Methylprednisolone 40 MG Q12 03/03 1000 DC 03/03 IV 2051 Omeprazole 20 MG DAILY AC 03/01 0700 AC 03/04 PO 0609 Patient Medication 1 ED ONE ONE 03/03 1545 DC Teaching ED 03/03 1546 Prednisone 40 MG DAILY 03/04 1000 AC PO 03/05 1001 Vital Signs & I&O Last 24 Hrs of Vitals and I&O: Vital Signs Date Time Temp Pulse Resp B/P B/P Pulse O2 O2 Flow FiO2 Mean Ox Delivery Rate 03/04 0620 97.8 70 22 148/76 94 Nasal Cannula 03/04 0039 93 Nasal 3.0L Cannula 03/04 0000 Nasal 3.0L Cannula 03/03 2246 98.1 78 22 140/70 92 Nasal Cannula 03/03 1640 95 Nasal 3.0L Cannula 03/03 1600 Nasal 4.0L Cannula 03/03 1355 98.2 88 20 122/80 93 Nasal 3.0L Cannula 03/03 0857 95 Nasal 3.0L Cannula Intake & Output 03/04 1600 03/04 0800 03/04 0000 Intake Total 100 290 Output Total 250 Balance -150 290 Intake, IV 10 Intake, Oral 100 280 Output, Urine 250 Patient 173 lb Weight Weight Bed scale Measurement Method Oxygen saturation 94% at 3 L baseline exam for chest shows diminished breath sounds are no crackles cardiac exam shows a regular S1 and S2 without murmurs Impression/Plan Impression/Plan Impression/Plan: 87-year-old with chronic hypoxic respiratory failure exacerbation of COPD is slowly improving now on oral prednisone. Recommendations: Physical therapy evaluation to determine capability of returning home. At the time of discharge patient should be referred to the COPD wellness clinic. Begin slow prednisone taper. Patient can be seen in follow-up in the office following discharge
--- NOTE | 2018-03-04 10:37 | Discharge Summary ---
Visit Information Visit Dates Admission Date: 03/01/18 Discharge Date: 03/04/18 Hospital Course Course Attending Physician: Paul Dumont MD Primary Care Physician: Merlin PALMER,[facility] Hospital Course: Ms. Baum is an 87-year-old female with a PMH significant for HTN, HLD, O2 dependent COPD, lung cancer status post partial lobectomy and radiation (2002), who is brought in by ambulance secondary to worsening shortness of breath. CXR shows spiculation and irregular density of the left upper lobe apical pleural thickening, currently awaiting records from her supply chain business analyst Dr. Boyer. Her SOB has significantly improved over the past few days. Problem list Acute hypoxic respiratory failure secondary to COPD exacerbation Spiculation and irregular density of the left upper lobe, apical pleural thickening Plan TRC/nebs PRN Supplemental oxygen, target saturation >92% Continue IV azithromycin Change IV Methylprednisolone to PO Influenza test negative Noncontrast CT chest showed Groundglass opacities in the lingula and tree-in-bud opacities in the right lung base and right middle lobe compatible with infectious/inflammatory process. Pulm recommendations appreciated Await records from supply chain business analyst Dr. Boyer/Grant ([place]) - faxed request Allergies: Coded Allergies: acetaminophen (From PERCOCET) (Intermediate, VOMITUS 02/28/18) oxycodone (From PERCOCET) (Intermediate, VOMITUS 02/28/18) Pertinent Lab Results: 03/01/18-0022 EXAM TYPE: RAD - XRY-CHEST XRAY, SINGLE VIEW IMPRESSION: There is spiculation and irregular density in the left upper lobe with left apical pleural thickening versus left pleural effusion. There is no old film for comparison. This could be due to left lung mass. CT chest with contrast recommended for further assessment. 03/02/18- EXAM TYPE: CAT - CT CHEST WO IV CONTRAST IMPRESSION: - Pleural thickening in the left upper lobe with associated calcification/surgical material. Correlation with surgical history is recommended. Correlation with prior chest CTs is also recommended to evaluate the stability of this pleural thickening. If no prior studies are available a short interval follow-up is recommended. - Mild volume loss in the left hemithorax with some leftward deviation of the mediastinum. No adenopathy. - Groundglass opacities in the lingula and tree-in-bud opacities in the right lung base and right middle lobe compatible with infectious/inflammatory process. Disposition Summary Disposition Principal Diagnosis: Acute hypoxic respiratory failure secondary to COPD exacerbation Additional Diagnosis: Left upper lobe mass Discharge Disposition: home health services Discharge Instructions General Discharge Information Code Status: Do Not Resucitate/Intubat Patient's Diet: Heart healthy diet Patient's Activity: Full Follow-Up Instructions/Appts: Follow up with Dr. Boyer upon discharge Follow up with your PCP within 1-2 weeks of discharge Follow up with the COPD clinic at [place] as needed Medications at Discharge Discharge Medications: Continue taking these medications: Triamterene/Hydrochlorothiazid (Triamterene-Hctz 37.5-25 MG Tb) 37.5 MG-25 MG TABLET 1 Tablet ORAL DAILY Qty = 30 Comments: NOT GIVEN IN THE HOSPITAL Valsartan/Hydrochlorothiazide (Valsartan-Hctz 80-12.5 MG Tab) 80 MG-12.5 MG TABLET 1 Tablet ORAL DAILY Qty = 90 Comments: NOT GIVEN IN THE HOSPITAL Escitalopram Oxalate (Escitalopram Oxalate) 10 MG TABLET 1 Tablet ORAL DAILY Qty = 30 Comments: Last Taken: 03/04/18 Time 10 AM Lorazepam (Lorazepam) 0.5 MG TABLET 1 Tablet ORAL DAILY NEEDED Qty = 30 Comments: Last Taken: 03/03/18 Time: 9PM Pantoprazole Sodium (Pantoprazole Sodium) 40 MG TABLET.DR 1 Tablet ORAL DAILY Qty = 30 Comments: PRILOSEC GIVEN IN THE HOSPITAL 03/04/18 @ 6 AM Donepezil HCl (Donepezil HCl) 10 MG TABLET 1 Tablet ORAL DAILY Qty = 90 Comments: Last Taken: 03/04/18 Time: 10 AM Naproxen Sodium (Aleve) (Unknown Strength) CAPSULE Unknown Dose Comments: NOT GIVEN IN THE HOSPITAL Docusate Sodium (Colace) (Unknown Strength) CAPSULE Unknown Dose Comments: NOT GIVEN IN THE HOSPITAL Cetirizine HCl (Zyrtec) 10 MG TABLET 1 Tablet ORAL DAILY Comments: NOT GIVEN IN THE HOSPITAL Lactobacillus Acidophilus (Acidophilus) (Unknown Strength) CAPSULE Unknown Dose ORAL DAILY Comments: Last Taken: 03/04/18 Time: 10 AM Start taking the following new medications: Prednisone (Prednisone) 10 MG TABLET 1 Tablet ORAL TWICE DAILY Qty = 16 No Refills Instructions: Take 40 mg 4/5, 30 mg 4/6 and 03/07, 20 mg 03/08, 03/09, 10 mg 03/10,03/11 Comments: Last Taken: 03/04/18 Time: 11AM Azithromycin (Azithromycin) 500 MG TABLET 1 Tablet ORAL DAILY Qty = 2 No Refills Instructions: . Comments: IV FORM ADMINISTERED Copies To: Merlin PALMER,Dae Attending MD Review Statement Documenting Attending: Paul Dumont MD Other Findings: Patgient is medically stable to be discharged today.
[2018-03-04 13:59] VITALS: BP 158/62
== END 2018-03-04 17:19 | disposition home health service (06) | DRG 189 ==
LOC: ERH 23:39 → ERHI 03-01 01:45 → 2NA 03-01 01:45 → ENRESERV 03-01 02:20 → 2NA 03-01 02:53 → ENPENDDIS 03-04 10:17 → ENTRNSPT 03-04 16:50 → EDTRNSPTSTS 03-04 16:54 → EDTRNSPT 03-04 17:07 → 2NA 03-04 17:19 → CMPTRNSPT 03-04 18:35
PROVIDERS: Student in an Organized Health Care Education/Training Program
DX: J96.21 Acute and chronic respiratory failure with hypoxia (principal); J44.0 Chronic obstructive pulmonary disease with (acute) lower respiratory infection; Z99.81 Dependence on supplemental oxygen; J44.1 Chronic obstructive pulmonary disease with (acute) exacerbation; J20.9 Acute bronchitis, unspecified; F03.90 Unspecified dementia, unspecified severity, without behavioral disturbance, psychotic disturbance, mood disturbance, and anxiety; I10 Essential (primary) hypertension; Z85.118 Personal history of other malignant neoplasm of bronchus and lung; Z90.2 Acquired absence of lung [part of]; R91.8 Other nonspecific abnormal finding of lung field; R91.1 Solitary pulmonary nodule; E78.5 Hyperlipidemia, unspecified; Z92.3 Personal history of irradiation; Z88.6 Allergy status to analgesic agent; Z88.5 Allergy status to narcotic agent; F41.9 Anxiety disorder, unspecified; F32.9 Major depressive disorder, single episode, unspecified; K21.9 Gastro-esophageal reflux disease without esophagitis; Z66 Do not resuscitate; Z87.891 Personal history of nicotine dependence
CPT/HCPCS: 2NASP; 71045; 87070; 87804; 87804-59; 93005; 93010; J0456; J1650; J2920; J2930; J7060

== ENCOUNTER 2018-04-15 14:50 | Emergency (ER) | payer OTHER ==
[~2018-04-15] VITALS: Ht 160 cm; Wt 72.6 kg
[~2018-04-15 14:50] MED LIST: ACIDOPHILUS1 EACH PO; ALEVE220 M1; AZITHROMYCIN500 M3 PO; COLACE100 M1; DONEPEZIL HCL10 M1 PO; ESCITALOPRAM OX10 MG PO; LORAZEPAM0.5 M1 PO; PANTOPRAZOLE SO40 M1 PO; PREDNISONE10 M2 PO; TRIAMTERENE-HC1 EAC1 PO; VALSARTAN-HCTZ1 EACH PO; ZYRTEC10 M3 PO
--- NOTE | 2018-04-15 17:28 | ED DYSPNEA/ASTHMA COMPLAINT ---
History of Present Illness General Chief Complaint: General Adult Stated Complaint: NO POWER NEEDS O2 Source: patient Exam Limitations: no limitations Vital Signs & Intake/Output Vital Signs & Intake/Output Vital Signs Date Time Temp Pulse Resp B/P B/P Pulse O2 O2 Flow FiO2 Mean Ox Delivery Rate 04/16 1335 92 Nasal 3.0L Cannula 04/16 1136 98.2 72 22 128/62 97 Nasal 3.0L Cannula 04/16 1027 91 Nasal 3.0L Cannula 04/16 0643 97.6 66 20 123/58 97 Nasal 3.0L Cannula 04/15 2209 97.7 81 22 116/49 93 Nasal 3.0L Cannula 04/15 2048 96 Nasal 3.0L Cannula 04/15 1734 Nasal 3.0L Cannula 04/15 1728 95 Nasal 3.0L Cannula ED Intake and Output 04/16 0000 04/15 1200 Intake Total Output Total Balance Patient 160 lb Weight Weight Reported by Patient Measurement Method Allergies Coded Allergies: acetaminophen (From PERCOCET) (Intermediate, VOMITUS 02/28/18) oxycodone (From PERCOCET) (Intermediate, VOMITUS 02/28/18) Reconcile Medications Albuterol Sulfate 1.25 MG/3 ML VIAL.NEB 1 Vial INH/MARIA GUADALUPE Q6 SOB (Reported) Budesonide 0.25 MG/2 ML AMPUL.NEB 1 Vial INH/MARIA GUADALUPE BID SOB (Reported) Cetirizine HCl (Zyrtec) 10 MG TABLET 1 TAB PO QHS ALLERGIES (Reported) Donepezil HCl 10 MG TABLET 1 TAB PO QHS DEMENTIA (Reported) Escitalopram Oxalate 10 MG TABLET 1 TAB PO DAILY DEPRESSION (Reported) Guaifenesin (Mucinex) 600 MG TAB.ER.12H 1 TAB PO BID COPD (Reported) Ipratropium [place] 0.2 MG/ML (0.02 %) SOLUTION 1 Vial INH/MARIA GUADALUPE 4 TIMES/DAY SOB (Reported) Lactobacillus Acidophilus (Acidophilus) (Unknown Strength) CAPSULE (Unknown Dose) PO QHS CONSTIPATION (Reported) Lorazepam 0.5 MG TABLET 1 TAB PO DAILY NEEDED ANXIETY (Reported) Naproxen Sodium (Aleve) (Unknown Strength) CAPSULE (Unknown Dose) PAIN CONTROL (Reported) Pantoprazole Sodium 40 MG TABLET.DR 1 TAB PO DAILY ACID REFLUX (Reported) Triamterene/Hydrochlorothiazid (Triamterene-Hctz 37.5-25 MG Tb) 37.5 MG-25 MG TABLET 1 TAB PO DAILY HIGH BLOOD PRESSURE (Reported) Valsartan/Hydrochlorothiazide (Valsartan-Hctz 80-12.5 MG Tab) 80 MG-12.5 MG TABLET 1 TAB PO DAILY HIGH BLOOD PRESSURE (Reported) Triage Note: PT TO ER C/C "I HAVE NO POWER AT MY HOUSE AND I NEED OXYGEN". PLACED ON BASELINE 3 L. SATS 94%. NO OTHER COMPLAINTS. PT ON OXYGEN TANK FROM HOSPITAL. Triage Nurses Notes Reviewed? yes Onset: Abrupt Duration: constant Severity: moderate HPI: Patient is a 87-year-old female who is oxygen dependent COPD who presents emergency room brought in by ambulance for concerns of losing electricity at her private residence where she is not receiving oxygen tank supplementation. Patient otherwise is without complaints, denies any fever chills chest pain shortness of breath arm pain jaw pain. (Micheal Bass) Past History Travel History Traveled to [place] past 21 day No Medical History Any Pertinent Medical History? see below for history Neurological: dementia EENT: allergies Cardiovascular: hypertension Respiratory: COPD, emphysema Gastrointestinal: GERD Hepatic: NONE Renal: NONE Musculoskeletal: NONE Psychiatric: anxiety, depression Endocrine: NONE Blood Disorders: NONE Cancer(s): NONE History of MRSA: No History of VRE: No History of CDIFF: No Surgical History Surgical History: L partial lobectomy Psychosocial History Who do you live with Patient/Self Services at Home Home Health Aide What is your primary language Welsh Tobacco Use: Quit >30 days ago Family History Hx Contributory? No (Micheal Bass) Review of Systems Review of Systems Constitutional: Reports: no symptoms. EENTM: Reports: no symptoms. Respiratory: Reports: no symptoms. Cardiovascular: Reports: no symptoms. GI: Reports: no symptoms. Genitourinary: Reports: no symptoms. Musculoskeletal: Reports: no symptoms. Skin: Reports: no symptoms. Neurological/Psychological: Reports: no symptoms. Hematologic/Endocrine: Reports: no symptoms. Immunologic/Allergic: Reports: no symptoms. All Other Systems: Reviewed and Negative (Micheal Bass) Physical Exam Physical Exam General Appearance: no apparent distress, alert Head: atraumatic Eyes: Bilateral: normal appearance. Ears, Nose, Throat: hearing grossly normal Respiratory: no respiratory distress, quiet respiration Cardiovascular: regular rate/rhythm Gastrointestinal: normal bowel sounds, soft Extremities: no edema Neurologic/Psych: no motor/sensory deficits, alert Skin: intact, normal color Core Measures ACS in differential dx? No CVA/TIA Diagnosis No Sepsis Present: No Sepsis Focused Exam Completed? No (Cortney NORRIS,Micheal) Progress Differential Diagnosis: asthma, AMI, bronchitis, costochondritis, CHF, COPD, musculoskeletal pain, pericarditis, pulmonary embolism, pneumonia, pneumothorax, rib fracture, unstable angina Plan of Care: Orders Procedure Date/time Status Regular Diet 04/16 B Active TROPONIN LEVEL 04/15 1959 Complete MAGNESIUM 04/15 1959 Complete COMPREHENSIVE METABOLIC PANEL 04/15 1959 Complete CBC WITHOUT DIFFERENTIAL 04/15 1959 Complete B-TYPE NATRIURETIC PEP (BNP) 04/15 1959 Complete Current Medications Sig/Hazel Start time Last Medication Dose Stop Time Status Admin Guaifenesin 600 MG BID 04/15 2100 UNVr 04/16 (Mucinex) 1104 Albuterol Sulfate 3 ML Q6 PRN 04/15 1900 AC 04/16 (Proventil) 1027 Donepezil HCl 10 MG .[QHS] 04/15 1900 UNVr 04/15 (Aricept) 220 Lorazepam 0.5 MG DAILY NEEDED 04/15 1900 UNVr 04/15 (Ativan) 04/22 Loratadine 10 MG DAILY 04/15 1853 UNVr 04/16 (Claritin) 1104 Laboratory Tests 04/15/182042: Anion Gap 14, Estimated GFR 60, BUN/Creatinine Ratio 24.4, Glucose 139 H, Calcium 9.4, Magnesium 1.7, Total Bilirubin 0.4, AST 18, ALT 18, Alkaline Phosphatase 63, Troponin I < 0.01, Jey-B-Jdwysdbvvru Pept 297 H, Total Protein 7.3, Albumin 4.3, Globulin 3.0, Albumin/Globulin Ratio 1.4, CBC w Diff NO MAN DIFF REQ, RBC 4.83, MCV 87.9, MCH 28.8, MCHC 32.7 L, RDW 14.8 H, MPV 7.6, Gran % 79.1 H, Lymphocytes % 10.4 L, Monocytes % 7.2, Eosinophils % 3.0, Basophils % 0.3, Absolute Granulocytes 9.5 H, Absolute Lymphocytes 1.2, Absolute Monocytes 0.9 H, Absolute Eosinophils 0.4, Absolute Basophils 0 on initial presentation is resting comfortable a bedside, speaking in clear sentences clear lungs auscultation denies any symptoms. Discussed handoff with Initial ED EKG: PENDING Hand-Off Endorsed To: Bernardo Ahuja MD Endorsed Time: 2017 Pending: labs (Micheal Bass) Diagnostic Imaging: Viewed by Me: Radiology Read. Discussed w/RAD: Radiology Read. CXR Impression: Extensive chronic appearing changes with an area of likely postoperative scarring/fibrosis in the lateral aspect of the left upper lobe similar in appearance to the prior studies. I do not appreciate any acute superimposed airspace disease Hand-Off Endorsed To: Donnie Ferrara MD Endorsed Time: 07 Pending: other (return of power to home) (Bernardo Ahuja MD) Departure Departure Condition: Stable Clinical Impression Primary Impression: COPD (chronic obstructive pulmonary disease) Referrals: Dae Boyer MD (PCP/Family) Departure Forms: Customer Survey General Discharge Information (Micheal Bass) PA/DIRECTOR OF CRITICAL CARE Co-Sign Statement Statement: ED Attending supervision documentation- x I saw and evaluated the patient. I have also reviewed all the pertinent lab results and diagnostic results. I agree with the findings and the plan of care as documented in the PA's/DIRECTOR OF CRITICAL CARE's documentation. [] I have reviewed the ED Record and agree with the PA's/DIRECTOR OF CRITICAL CARE's documentation. [] Additions or exceptions (if any) to the PAs/DIRECTOR OF CRITICAL CARE's note and plan are summarized below: [] (Bernardo Ahuja MD) Departure Disposition: HOME OR SELF CARE Additional Instructions: RETURN IF YOU RUN OUT OF OXYGEB OR FOR ANY CONCERNS PA/DIRECTOR OF CRITICAL CARE Co-Sign Statement Statement: ED Attending supervision documentation- [X] I saw and evaluated the patient. I have also reviewed all the pertinent lab results and diagnostic results. I agree with the findings and the plan of care as documented in the PA's/DIRECTOR OF CRITICAL CARE's documentation. [] I have reviewed the ED Record and agree with the PA's/DIRECTOR OF CRITICAL CARE's documentation. [] Additions or exceptions (if any) to the PAs/DIRECTOR OF CRITICAL CARE's note and plan are summarized below: [] (Donnie Ferrara MD) Critical Care Note Critical Care Note Critical Care Time: non-applicable (Micheal Bass)
[2018-04-15] MEDS ORDERED: MUCINEX600 M1 PO (18:08)
[2018-04-15] MEDS ORDERED: ALBUTEROL1.25 MG/1 INH/SOL (18:15)
[2018-04-15] MEDS ORDERED: BUDESONIDE0.25 MG/1 INH/SOL (18:16)
[2018-04-15] MEDS ORDERED: IPRATROPIU0.2 MG/1 M INH/SOL (18:16)
--- NOTE | 2018-04-15 20:47 | RADIOLOGY REPORT ---
EXAMINATION: CHEST 2 VIEWS CLINICAL INFORMATION: Short of breath. COPD. COMPARISON: Prior studies including the 03/01/2018 chest x-ray and the 03/02/2018 CT scan.. TECHNIQUE: AP frontal and lateral views of the chest obtained FINDINGS: Extensive chronic appearing changes are again seen with focal right lateral upper lobe scarring and retraction with likely staple line in this region better seen on recent CT scan. There are coarsened reticular markings seen bilaterally. I do not appreciate any additional superimposed focal infiltrate, effusion, edema, or pneumothorax. Cardiac silhouette within normal limits for size. Vascular calcification in the aorta IMPRESSION: Extensive chronic appearing changes with an area of likely postoperative scarring/fibrosis in the lateral aspect of the left upper lobe similar in appearance to the prior studies. I do not appreciate any acute superimposed airspace disease
[2018-04-15 20:54] LABS: ABSOLUTE BASOPHIL COUNT 0 /CUMM (0.0-0.2); ABSOLUTE EOSINOPHIL COUNT 0.4 /CUMM (0.0-0.7); ABSOLUTE GRANULOCYTE CT 9.5 /CUMM (1.4-6.5); ABSOLUTE LYMPH COUNT 1.2 /CUMM (1.2-3.4); ABSOLUTE MONOCYTE COUNT 0.9 /CUMM (0.10-0.60); BASOPHIL % 0.3 % (0.0-2.0); GRANULOCYTE % 79.1 % (42.2-75.2); HEMATOCRIT 42.5 % (37-47); MEAN CORPUSCULAR HGB 28.8 PG (27.0-31.0); MEAN CORPUSCULAR HGB CONC 32.7 G/DL (33.0-37.0); MEAN CORPUSCULAR VOLUME 87.9 FL (81.0-99.0); MEAN PLATELET VOLUME 7.6 FL (7.4-10.4); PLATELET COUNT 355 /CUMM (130-400); RBC DISTRIBUTION WIDTH 14.8 % (11.5-14.5); RED BLOOD CELL CT 4.83 /CUMM (4.20-5.40); WHITE BLOOD CELL COUNT 12.1 /CUMM (4.8-10.8)
[2018-04-16 16:59] VITALS: BP 138/67
== END 2018-04-16 17:07 ==
LOC: ERH 14:50
PROVIDERS: Emergency Medicine
DX: J44.9 Chronic obstructive pulmonary disease, unspecified (principal); Z87.891 Personal history of nicotine dependence; Z99.81 Dependence on supplemental oxygen
CPT/HCPCS: 1263; 71046